=== PATIENT | male | born 1970 | race Caucasian/White ===

== ENCOUNTER → 2023-08-15 | Outpatient (CLI) | payer OTHER ==
--- NOTE | 2023-08-15 16:02 | US ---
EXAMINATION TYPE: US scrotum with doppler. TECHNIQUE: Grayscale and color Doppler Duplex imaging performed of the scrotum. DATE OF EXAM: 08/15/2023 COMPARISON: NONE CLINICAL INDICATION: Male, 53 years old with history of N50.819 TEST.PAIN; Pain EXAM MEASUREMENTS: TESTICLES: Right Testicle: 5.3 x 2.9 x 4.0 cm Left Testicle: 4.9 x 3.3 x 3.3 cm EPIDIDYMIS HEAD: Right Epididymis: Not well visualized. Left Epididymis: 1.3 x 1.8 x 1.5 cm Cystic area seen 1.1 x 1.4 x 1.5 cm. Doppler performed to assess for testicular vascularity; good bilateral color flow and waveforms are s een. There is no evidence of testicular torsion. Presence of hydroceles: Yes left, [id number] sized Presence of varicoceles: no IMPRESSION: 1. No sonographic evidence for testicular torsion or epididymoorchitis. 2. A lskqa-cg-ehcpeuem sized hydrocele on the left. 3. An additional 1.5 cm epididymal head cyst/spermatocele on the left.
== END | disposition home or self-care (01) ==
LOC: RADUSWWP 14:11 → MERGE 15:40
PROVIDERS: ATTEND Family Medicine
DX: N43.3 Hydrocele, unspecified (principal); R07.9 Chest pain, unspecified; N50.811 Right testicular pain
CPT/HCPCS: 76870; 93975

== ENCOUNTER → 2023-11-06 | Outpatient (CLI) | payer OTHER ==
--- NOTE | 2023-11-06 10:34 | CA ---
Exercise Stress Test Report Name: Brijesh Valdez Exam Date: 11/06/2023 09:22 Exam Location: [facility] Ht (in): 73 Wt (lb): 250 BSA: 2.37 Ordering Phys: Grace Cabrera DO Referring Phys: FRANKIE Technologist: Stiven Rodrigues Age: 53 Gender: M : 1970 Procedure CPT: Indications: R07.89 other chest pain ICD-10 Codes: Patient History: CHEST PAIN, PALPITATIONS, HTN, DIABETIC, HYPERCHOLESTEROLEMIA Medications: ATENOLOL, LOSARTAN, HZTZ, ATIVAN, MELOXICAM, METFORMIN Meds past 24 hrs: Pretest Chest Pain: STRESS TEST Sky Protocol Exercise Duration (min:sec): 10:[address] Depressions (mm): Angina Score: Jefferson Score: Resting HR (bpm): 79 Peak HR (bpm): 144 Resting BP (mmHg): 141 / 85 Peak BP (mmHg): 182 / 63 MPHR: 167 Target HR: 142 % MPHR: 86 METS: 10.8 Total Dose: Peak Dose: Atropine: Double Product: 40273 BP Response: Stress Termination: TARGET HR REACHED/MAX EXERTION Stress Symptoms: NO SYMPTOMS Stress Summary: ECG ANALYSIS Resting ECG: Stress ECG: CONCLUSIONS Baseline EKG revealed normal sinus rhythm without significant ST and T-wave changes. Patient walked on a standard Sky protocol for 10 minutes 31 seconds and achieved a maximum heart rate of 144 bpm. This was more than 85% of predicted maximal. Resting heart rate was 79 bpm. Resting blood pressure was 141/85 and peak blood pressure was 182/63. There was no angina. There was no significant arrhythmia and there were no ST segment changes to indicate ischemia. This is a negative stress test with good exercise capacity, no evidence to suggest myocardial ischemia Dr. Yash Burgos MD (Electronically Signed) Final Date: 06 November 2023 10:34
== END | disposition home or self-care (01) ==
LOC: RADNMMAIN 08:46
PROVIDERS: ATTEND Family Medicine
DX: R07.89 Other chest pain (principal)
CPT/HCPCS: 93017